=== PATIENT | male | born 1960 | race Caucasian/White ===

== ENCOUNTER 2018-10-30 15:16 | Outpatient (CLI) | payer BC ==
--- NOTE | 2018-10-31 03:16 | XRAY Report ---
Reason: PAIN IN UNSPECIFIED HIP/PAIN IN RIGHT SHOULDER Procedure Date: 10/30/2018 Accession Number: [id number] / [id number] Procedure: XR - Shoulder 3 View RT CPT Code: FULL RESULT: EXAM: RIGHT SHOULDER RADIOGRAPHY EXAM DATE: 10/30/2018 03:59 PM. CLINICAL HISTORY: PAIN IN UNSPECIFIED HIP/PAIN IN RIGHT SHOULDER. COMPARISON: None. TECHNIQUE: 3 views. FINDINGS: Bones: No acute displaced fractures or suspicious bony lesion. Joints: No dislocation. Moderate degenerative change. Soft Tissues: No significant soft tissue swelling. IMPRESSION: No acute osseous abnormality demonstrated. RADIA
--- NOTE | 2018-10-31 04:31 | XRAY Report ---
Reason: PAIN IN UNSPECIFIED HIP/PAIN IN RIGHT SHOULDER Procedure Date: 10/30/2018 Accession Number: [id number] / [id number] Procedure: XR - Hip w/Pelvis 2-3V LT CPT Code: FULL RESULT: EXAM: PELVIS AND LEFT HIP RADIOGRAPHY EXAM DATE: 10/30/2018 03:59 PM. CLINICAL HISTORY: Pain in unspecified hip, pain in right shoulder. Chronic low back pain radiating into the left hip. COMPARISON: None. TECHNIQUE: 1 view pelvis, 2 views left hip. FINDINGS: Bones: No acute displaced fractures or suspicious bony lesion. Joints: No dislocation. Severe left hip degenerative change and moderate to severe right hip degenerative change. Moderate to severe lower lumbar degenerative change. Mild bilateral SI joint degenerative change. Mild to moderate symphysis pubis degenerative change. Soft Tissues: No significant soft tissue swelling. IMPRESSION: No acute osseous abnormality demonstrated. Severe left hip degenerative change. RADIA
== END 2018-10-30 15:17 | disposition home or self-care (01) ==
LOC: DI 15:16
PROVIDERS: ATTEND Internal Medicine
DX: M16.12 Unilateral primary osteoarthritis, left hip (principal); M25.512 Pain in left shoulder; M25.511 Pain in right shoulder

== ENCOUNTER 2019-01-06 09:44 | Outpatient (CLI) | payer BC ==
--- NOTE | 2019-01-06 11:43 | XRAY Report ---
Reason: SPONDYLOSIS,LUMBAR,W/RADICULOPATHY Procedure Date: 01/06/2019 Accession Number: [id number] / [id number] Procedure: XR - Lumbar Spine Complete CPT Code: FULL RESULT: EXAM: LUMBOSACRAL SPINE RADIOGRAPHY EXAM DATE: 01/06/2019 10:15 AM. CLINICAL HISTORY: Spondylosis, lumbar, with radiculopathy. COMPARISONS: None. TECHNIQUE: 5 views. FINDINGS: Alignment: There is prominent lateral osteophytosis at L1 and L2 which is the site of a mild levoconvex scoliosis. There is a pars defect at L5 without significant listhesis. Osseous neural foramina appear preserved. Bones: Five lcp-fys-zevahtk lumbar vertebral bodies are present. No fractures or bone lesions. Disks: There is flowing anterior osteophytosis with otherwise relatively preserved disk spaces. Facets: Severe facet arthropathy especially at L4 and L5. Sacroiliac Joints: Unremarkable. Soft Tissues: Normal. The visualized bowel gas pattern is normal. IMPRESSION: Degenerative changes including pars defect and prominent osteophytosis as described. RADIA
== END 2019-01-06 09:45 | disposition home or self-care (01) ==
LOC: DI 09:44
PROVIDERS: ATTEND Orthopaedic Surgery
DX: M47.26 Other spondylosis with radiculopathy, lumbar region (principal)
CPT/HCPCS: 72110

== ENCOUNTER 2019-01-13 15:37 | Outpatient (CLI) | payer BC | END 2019-01-13 15:38 | disposition home or self-care (01) | LOC: DI 15:37 | PROVIDERS: ATTEND Orthopaedic Surgery | DX: Z53.9 Procedure and treatment not carried out, unspecified reason (principal) ==

== ENCOUNTER 2021-01-26 12:26 | Outpatient (CLI) | payer OTHER, BC ==
--- NOTE | 2021-01-26 13:09 | XRAY Report ---
PROCEDURE: Shoulder 2 View LT INDICATIONS: LEFT SHOULDER CONTUSION TECHNIQUE: 3 views of the shoulder were acquired. COMPARISON: None. FINDINGS: Bones: No fractures or dislocations. Moderate to severe acromioclavicular joint and glenohumeral mady nt osteoarthritis is seen. No suspicious bony lesions. Visualized ribs appear intact. Soft tissues: No suspicious soft tissue calcifications. 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 No fracture or dislocation. No gr oss soft tissue abnormality. Reviewed by: Fidel Fournier MD on 01/26/2021 1:08 PM PDT Approved by: Fidel Fournier MD on 01/26/2021 1:08 PM PDT Station ID: [id number]
== END 2021-01-26 23:59 | disposition home or self-care (01) ==
LOC: DI.S 12:26
PROVIDERS: ATTEND Emergency Medicine
DX: M19.012 Primary osteoarthritis, left shoulder (principal)

== ENCOUNTER 2022-06-21 13:29 | Outpatient (CLI) | payer BC ==
--- NOTE | 2022-06-21 14:18 | CT Report ---
PROCEDURE: Low Dose Lung Cancer Screen INDICATIONS: EX SMOKER TECHNIQUE: Noncontrast low-dose axial images were acquired from the pulmonary apices to the posterior costophren ic angles. Multiplanar MIP reformats were then reconstructed. For radiation dose reduction, the follo wing was used: automated exposure control, adjustment of mA and/or kV according to patient size. COMPARISON: None. FINDINGS: Image quality: Portions of the lung apices are not well seen due to body habitus and patient arm posi tioning.. Lungs and pleura: No emphysematous change, acute inflammation, or lung mass is found. Mediastinum: Heart size is normal. No pericardial effusion. No mediastinal adenopathy by size crit eria. Thoracic aorta and central pulmonary arteries are normal in size. Esophagus is normal in yanci miriam. No hiatal hernia. Bones and chest wall: No suspicious bony lesions. No vertebral body compression fractures. No axil eulalia or supraclavicular adenopathy by size criteria. The thyroid is normal in size and there are no incidental findings. Abdomen: Visualized upper abdomen solid organs and bowel loops appear normal in the absence of contr ast. IMPRESSION: Somewhat limited by patient arm positioning and body habitus, but no acute disease and no evidence of underlying neoplasm or COPD is found. CLINICAL RECOMMENDATION STATEMENTS: In patients <35 years with an ITN detected on CT, MRI, or extrathyroidal ultrasound, the Committee re commends further evaluation with dedicated thyroid ultrasound if the nodule is "e1 cm and has no susp icious imaging features, and if the patient has normal life expectancy. In patients "e35 years with an ITN detected on CT, MRI, or extrathyroidal ultrasound, the Committee r ecommends further evaluation with dedicated thyroid ultrasound if the nodule is "e1.5 cm and has no s uspicious imaging features, and if the patient has normal life expectancy. (ACR, 2014) Reviewed by: Jordan Choi MD on 06/21/2022 2:16 PM PDT Approved by: Jordan Choi MD on 06/21/2022 2:16 PM PDT Station ID: [id number]
== END 2022-06-21 13:30 | disposition home or self-care (01) ==
LOC: DI 13:29
PROVIDERS: ATTEND Nurse Practitioner Family
DX: Z12.2 Encounter for screening for malignant neoplasm of respiratory organs (principal); Z87.891 Personal history of nicotine dependence

== ENCOUNTER 2022-07-04 10:04 | Outpatient (CLI) | payer BC ==
[2022-07-04 10:59] VITALS: BP 124/70
--- NOTE | 2022-07-04 10:59 | SLEEP CARE CONSULTATION ---
Information from patient questionnaire entered by Padmaja Terrazas. I have reviewed and concur with the information entered by Padmaja Terrazas. This document represents the service I personally performed and the decisions made by me, Radha Smith ARNP. History of Present Illness Service Date and Time: 07/04/2022 1004 Reason for Visit: New patient, Previously diagnosed sleep apnea Chief Complaint: reports: Unrefreshed sleep, Snoring, Excessive daytime sleepiness, Fatigue Date of Onset: years Usual bedtime: 12am Time it takes to fall asleep: 10min Snores at night: Yes Observed to quit breathing while asleep: Yes Sleeps alone due to snoring: No Number of times waking at night: 0-2 Reasons for waking at night: reports: Snoring, Other (something else waking him up) Toss, Turn, or Twitch while sleeping: No Recalls having dreams: Yes Usually gets out of bed at: 0800 Feels refreshed in the morning: No Morning headache: No Sleepy or fatigued during the day: Yes Ever fallen asleep while driving: No Takes day naps: Yes (2-3 days a week; 30-60 minutes) Dreams during day naps: No Prior sleep studies: No Additional HPI information: I had the pleasure of seeing MARKIE PIÑA today regarding the possibility of him having a sleep disorder. His current complaints are excessive daytime sleepiness, fatigue, snoring and unrefreshed sleep. Patient with a previous diagnosis of sleep apnea but not using his CPAP. He did not feel he could tolerate using a CPAP. He has snored for a long time and has times when he stops breathing when sleeping. His partner has had to wake him up because he stopped breathing. He started sleeping on a wedge about a year ago and he is not having the pauses anymore. He is not always rested in the morning and is very tired throughout the day. He will fall asleep when watching TV. He is trying to lose weight to improve his overall health. 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 Patient is Single and lives in . Have you smoked in the past 12 months: No Cigarettes per day (20/pack): 20 Years of smokin Quit date: 2009 Smoking Pack Years: 15.0 Alcohol use: No Caffeine use: Yes Caffeine amount and frequency: 2 cup every morning Family History Family history of sleep disordered breathing: No Allergies and Home Medications Known drug allergies: No Drug allergies reviewed: Yes (NKDA) Home medication list reviewed: Yes Allergy and home medication list: Medication: Gabapentin Plavix Losartan Coreg Lipitor Flomax Tylenol, prn Fish oil MVT Review of Systems Weight gain over past 5 years: 50 Weight loss over past 5 years: 50 Cardiovascular: reports: high blood pressure Gastrointestinal: reports: heartburn Ear/Nose/Throat: reports: tonsillectomy, wisdom teeth removed Musculoskeletal: reports: joint pain, neck pain, back pain, mobility problems Physical Exam Vital signs obtained and entered by: PADMAJA Elliott MA Blood Pressure: 124/70 (left arm) Cuff size: long Heart Rate: 65 O2 Saturation: 97 Height: 6 ft 2 in Weight: 348 lb 3.2 oz Body Mass Index: 44.6 BMI Classification: Morbidly Obese Neck circumference: 20 (inches) Turbinates: swollen Mouth and throat: narrow oropharynx Soft palate: long Hard palate: normal Uvula: normal Uvula visualization: 25% Mallampati Class III Tonsils: absent bilaterally Heart: regular rate and rhythm Lungs: clear bilaterally Impression and Plan 1. Suspected Obstructive Sleep Apnea-Hypopnea Syndrome, as previously diagnosed and as still suggested by a history of loud and irregular snoring, observed cessation of breath while asleep, unrefreshed sleep, and excessive daytime sleepiness. I recommend proceeding to polysomnography to confirm the diagnosis and to assess severity. If the patient has significant sleep disordered breathing, a manual CPAP titration study will also be performed to find the optimal treatment pressure. I informed the patient of what the sleep studies involve and after some discussion, obtained agreement to proceed. The pathophysiology of obstructive sleep apnea-hypopnea syndrome was discussed with the patient and health risks of cardiovascular and cerebrovascular disease if not treated. 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 Patient agreed to plan. * Schedule polysomnography * Avoid long distance driving or driving when feeling sleepy. * Avoid alcohol, sedative and muscle relaxant around bedtime. * Attempt to lose weight. * Review instructions provided by trained office staff on how to prepare for the sleep study. * Return for follow-up after sleep study completed. Counseling Topics: Weight loss health impact Visit Type: In Office Time Spent with Patient (minutes): 33 Provider Statement: I spent 100% of the Face to Face Visit with the patient with greater than 50% spent counseling the patient and coordination of care.
== END 2022-07-04 10:05 | disposition home or self-care (01) ==
LOC: SC 10:04
PROVIDERS: ATTEND Nurse Practitioner Family
DX: G47.33 Obstructive sleep apnea (adult) (pediatric) (principal); Z87.891 Personal history of nicotine dependence; E66.01 Morbid (severe) obesity due to excess calories; Z68.41 Body mass index [BMI] 40.0-44.9, adult
CPT/HCPCS: 99203; 99212

== ENCOUNTER 2022-08-06 09:13 | Outpatient (CLI) | payer BC | END 2022-08-06 09:14 | disposition home or self-care (01) | LOC: SC 09:13 | PROVIDERS: ATTEND Nurse Practitioner Family | DX: G47.33 Obstructive sleep apnea (adult) (pediatric) (principal); R09.02 Hypoxemia | CPT/HCPCS: 95806 ==

== ENCOUNTER 2023-05-06 08:00 | Outpatient (CLI) | payer BC | END 2023-05-06 23:59 | disposition home or self-care (01) | LOC: LAB.R 08:00 | PROVIDERS: ATTEND Physician Assistant | DX: N39.0 Urinary tract infection, site not specified (principal) | CPT/HCPCS: 87086; 87181 ==